=== PATIENT | female | born 1990 ===

== ENCOUNTER 2017-12-26 17:37 | Emergency (ER) | payer OTHER ==
[2017-12-26 17:54] VITALS: O2SAT 100; BMI 25.0
--- NOTE | 2017-12-26 19:44 | ED PDOC ---
Lower Extremity Pain/Injury Time Seen by Provider: 12/26/17 18:26 Chief Complaint (Nursing): Lower Extremity Problem/Injury Chief Complaint (Provider): Lower Extremity Problem/Injury History Per: Patient History/Exam Limitations: no limitations Onset/Duration Of Symptoms: Days Current Symptoms Are (Timing): Still Present Additional Complaint(s): 27 y/o female presents to the ED for evaluation of left knee pain for the last two years. Patient states withing the last month, it has been worsening prompting patient to see Orthopedic physician, Dr. Caridad Mercado last week where she was diagnosed with patellofemoral and advised to go to physical therapy. Patient arrived in the ED with physical therapy script requesting a second opinion. Patient states she's been taking Advil for pain and her last dose was at 1 PM today. Otherwise: (-) other complaints, (-) fall, (-) trauma. PMD: Christal Rutherford LNMP: Now Past Medical History Reviewed: Historical Data, Nursing Documentation, Vital Signs Vital Signs: Last Vital Signs Temp 98.4 F 12/26/17 17:52 Pulse 85 12/26/17 17:52 Resp 16 12/26/17 17:52 BP 123/73 12/26/17 17:52 Pulse Ox 100 12/26/17 17:52 - Medical History PMH: No Chronic Diseases - Surgical History Surgical History: No Surg Hx - Family History Family History: States: Unknown Family Hx - Home Medications Home Medications: Ambulatory Orders Medication Instructions Recorded Acetaminophen [Acetaminophen 8 650 mg PO Q8 PRN #21 tablet.er 12/26/17 Hour] Naproxen 500 mg PO BID PRN #20 tab 12/26/17 - Allergies Allergies/Adverse Reactions: Allergies Allergy/AdvReac Type Severity Reaction Status Date / Time No Known Allergies Allergy Verified 12/26/17 18:00 Review of Systems ROS Statement: Except As Marked, All Systems Reviewed And Found Negative Musculoskeletal: Positive for: Leg Pain (left knee pain) Physical Exam - Reviewed Nursing Documentation Reviewed: Yes Vital Signs Reviewed: Yes - Physical Exam Comments: GENERAL APPEARANCE: Patient is awake, alert, oriented x 3, in no acute distress. SKIN: Warm, dry; (-) cyanosis. LOWER EXTREMITY: Full ROM of the left knee with pain on flexion. (-) anterior and posterior draw sign. (-) instability on valgus or varus stress, (-) effusion , (-) ecchymosis, (-) calf tenderness, (-) pedal edema. CHEST AND RESPIRATORY: (-) rhonchi, (-) rales, (-) wheezes, (-) pleural rub; breath sounds equal bilaterally. HEART AND CARDIOVASCULAR: (-) irregularity; (-) murmur, (-) gallop. (+) distal pulse. NEUROLOGIC: (+) distal sensation. - ECG O2 Sat by Pulse Oximetry: 100 (RA) Pulse Ox Interpretation: Normal Medical Decision Making Medical Decision Making: Time: 1918 Impression: Acute Knee Pain, patello-femoral Plan: -- Tylenol 650 mg PO -- ZEENAT Bandage Time: 1939 -- On re-evaluation, patient is neurovascularly intact after ZEENAT bandage placement applied here in the ER. Patient advised to RICE affected area and to pursue physical therapy to strengthen quad muscle. Patient also advised to follow up with orthropedist in 1-2 days without fail. Advised to take medication as prescribed. Return to the emergency room at any time for any new or worsening symptoms. -- Diagnostic results d/w the patient in great detail. Dx of acute knee pain, patello-femoral syndrome d/w the patient. Based on history, exam and diagnostic results plan will be for discharge and outpatient follow up. Patient states she fully agrees with and understands discharge instructions. States that she agrees with the plan and disposition. Verbalized and repeated discharge instructions and plan. I have given the patient opportunity to ask any additional questions. Scribe Attestation: Documented by Jamaica Cortes, acting as a scribe for Ivonne Bowers PA-C. Provider Scribe Attestation: All medical record entries made by the Scribe were at my direction and personally dictated by me. I have reviewed the chart and agree that the record accurately reflects my personal performance of the history, physical exam, medical decision making, and the department course for this patient. I have also personally directed, reviewed, and agree with the discharge instructions and disposition. Disposition - Clinical Impression Clinical Impression: Knee pain, acute, Patella-femoral syndrome - Patient ED Disposition Is Patient to be Admitted: No Counseled Patient/Family Regarding: Diagnosis, Need For Followup, Rx Given - Disposition Referrals: Beltran Carrington MD [Medical Doctor] - Disposition: Routine/Home Disposition Time: 19:44 Condition: STABLE Additional Instructions: The emergency medical care you received today was directed at your acute symptoms. If you were prescribed any medication, please fill it and take as directed. It may take several days for your symptoms to resolve. Return to the Emergency Department if your symptoms worsen, do not improve, or if you have any other problems. Please contact your doctor in 2 days for re-evaluation and follow up / or call one of the physicians/clinics you have been referred to that are listed on the Patient Visit Information form that is included in your discharge packet. Bring any paperwork you were given at discharge with you along with any medications you are taking to your follow up visit. Our treatment cannot replace ongoing medical care by a primary care provider (PCP) outside of the emergency department. Prescriptions: Acetaminophen [Acetaminophen 8 Hour] 650 mg PO Q8 PRN #21 tablet.er PRN Reason: Pain, Moderate (4-7) Naproxen 500 mg PO BID PRN #20 tab PRN Reason: Pain, Severe (8-10) Instructions: Patellofemoral Pain (DC), Knee Pain Forms: [place] (Comoran) Print Language: NAMIBIAN - POA Present On Arrival: None
[2017-12-26 19:55] VITALS: BP 122/70; PULSE 70; RESP 18; TEMP 98
== END 2017-12-26 19:55 | disposition home or self-care (01) ==
LOC: H.ER 17:37
DX: M22.2X1 Patellofemoral disorders, right knee (principal)